=== PATIENT | female | born 1980 | race Caucasian/White ===

== ENCOUNTER 2017-12-06 20:30 | Emergency (ER) | payer OTHER ==
[2017-12-06 23:45] LABS: URINE BLOOD (Dip) POC Negative (NEGATIVE); URINE GLUCOSE (Dip) POC Negative (NEGATIVE); URINE KETONES (Dip) POC Trace (NEGATIVE); URINE LEUKOCYTE EST (Dip) POC Negative (NEGATIVE); URINE NITRITE (Dip) POC Negative (NEGATIVE); URINE TOTAL PROTEIN POC Negative (NEGATIVE)
[2017-12-07] MEDS: morphine 4 MG/ML VIAL IV
[2017-12-07] MEDS: ONDANSETRON 4 MG INJ IV
[2017-12-07] MEDS: SOD CHLORIDE 0.9% 1,000 ML IV
[2017-12-07 00:36] LABS: ADD MAN DIFF? NO
[2017-12-07 00:54] LABS: ALANINE AMINOTRANSFERASE 42 IU/L (13-69); ALBUMIN 4.2 g/dl (3.3-4.9); ALBUMIN/GLOBULIN RATIO 1.07; ALKALINE PHOSPHATASE 88 IU/L (42-121); ANION GAP 15 (8-16); ASPARTATE AMINO TRANSFERASE 33 IU/L (15-46); BILIRUBIN,INDIRECT 0.1 mg/dl (0-1.1); BILIRUBIN,TOTAL 0.1 mg/dl (0.2-1.3); BLOOD UREA NITROGEN 10 mg/dl (7-20); CALCIUM 9.2 mg/dl (8.4-10.2); CARBON DIOXIDE 24 mmol/L (21-31); CHLORIDE 105 mmol/L (97-110); CREATININE 0.52 mg/dl (0.44-1.00); GLUCOSE 122 mg/dl (70-220); LIPASE 158 U/L (23-300); POTASSIUM 3.8 mmol/L (3.5-5.1); SODIUM 140 mmol/L (135-144); TOTAL PROTEIN 8.1 g/dl (6.1-8.1)
[2017-12-07 00:55] LABS: WHITE BLOOD COUNT 7.2 10^3/ul (4.8-10.8)
[2017-12-07 00:55] LABS: BASOPHILS % 0.6 % (0.0-2.0); EOSINOPHILS # 0.1 10^3/ul (0.0-0.5); EOSINOPHILS % 0.8 % (0.0-7.0); HEMATOCRIT 36.8 % (37.0-47.0); HEMOGLOBIN 12.9 g/dl (12.0-16.0); LYMPHOCYTES # 2.7 10^3/ul (0.8-2.9); LYMPHOCYTES % 37.2 % (15.0-51.0); MEAN CORPUSCULAR HEMOGLOBIN 30.5 pg (29.0-33.0); MEAN CORPUSCULAR HGB CONC 35.1 g/dl (32.0-37.0); MEAN PLATELET VOLUME 10.7 fl (7.4-10.4); MONOCYTE # 0.5 10^3/ul (0.3-0.9); MONOCYTES % 7.3 % (0.0-11.0); NEUTROPHIL # 3.9 10^3/ul (1.6-7.5); NEUTROPHILS % 53.8 % (39.0-77.0); PLATELET COUNT 278 10^3/UL (140-415); RED BLOOD COUNT 4.23 10^6/ul (4.20-5.40); RED CELL DISTRIBUTION WIDTH 12.4 % (11.5-14.5)
[2017-12-07 01:02] LABS: ADD UMIC NO; UR ASCORBIC ACID NEGATIVE (NEGATIVE); UR BILIRUBIN (Dip) NEGATIVE (NEGATIVE); UR BLOOD (Dip) NEGATIVE (NEGATIVE); UR CLARITY CLEAR (CLEAR); UR COLOR YELLOW (YELLOW); UR GLUCOSE (Dip) NEGATIVE (NEGATIVE); UR KETONES (Dip) NEGATIVE (NEGATIVE); UR LEUKOCYTE ESTERASE (Dip) NEGATIVE Leu/ul (NEGATIVE); UR NITRITE (Dip) NEGATIVE (NEGATIVE); UR SPECIFIC GRAVITY (Dip) 1.016 (1.003-1.030); UR TOTAL PROTEIN (Dip) NEGATIVE (NEGATIVE); UR UROBILINOGEN (Dip) 1+ mg/dL (NEGATIVE)
== END 2017-12-07 03:01 | disposition home or self-care (01) ==
LOC: FTE 12-07 03:01
DX: R10.11 Right upper quadrant pain (principal)
CPT/HCPCS: 36415; 74176; 76705; 80053; 81003; 83690; 84703; 85025; 96374; 96375; 99285-25

== ENCOUNTER 2018-03-04 17:12 | Emergency (ER) | payer OTHER ==
[2018-03-04] MEDS: IBUPROFEN 600 MG TAB PO (20:06)
[2018-03-04] MEDS: DIAZEPAM 2 MG TAB PO (20:06)
== END 2018-03-04 21:13 | disposition home or self-care (01) ==
LOC: FTE 17:12
DX: M25.512 Pain in left shoulder (principal); M54.2 Cervicalgia
CPT/HCPCS: 72040; 73030; 99284-25

== ENCOUNTER 2018-06-23 02:12 | Emergency (ER) | payer OTHER ==
[2018-06-23 02:35] LABS: URINE BLOOD (Dip) POC 3+ (NEGATIVE); URINE GLUCOSE (Dip) POC Negative (NEGATIVE); URINE KETONES (Dip) POC 1+ (NEGATIVE); URINE LEUKOCYTE EST (Dip) POC Negative (NEGATIVE); URINE NITRITE (Dip) POC Negative (NEGATIVE); URINE TOTAL PROTEIN POC 2+ (NEGATIVE)
[2018-06-23] MEDS: SOD CHLORIDE 0.9% 1,000 ML IV (03:05)
[2018-06-23] MEDS: ACETAMINOPHEN 325 MG TAB PO (03:06)
[2018-06-23] MEDS: ONDANSETRON 4 MG INJ IV (03:06)
[2018-06-23] MEDS: morphine 4 MG/ML VIAL IV (03:06)
[2018-06-23 03:17] LABS: HEMOGLOBIN 12.5 g/dl (12.0-16.0); MEAN CORPUSCULAR HEMOGLOBIN 30.1 pg (29.0-33.0); MEAN CORPUSCULAR HGB CONC 34.7 g/dl (32.0-37.0); MEAN CORPUSCULAR VOLUME 86.7 fl (82.0-101.0); PLATELET COUNT 193 10^3/UL (140-415); RED BLOOD COUNT 4.15 10^6/ul (4.20-5.40); RED CELL DISTRIBUTION WIDTH 13.1 % (11.5-14.5)
[2018-06-23 03:17] LABS: WHITE BLOOD COUNT 3.3 10^3/ul (4.8-10.8)
[2018-06-23 03:32] LABS: ADD MAN DIFF? YES; POSITIVE DIFF @See below
[2018-06-23 03:36] LABS: ALANINE AMINOTRANSFERASE 47 IU/L (13-69); ALBUMIN/GLOBULIN RATIO 1.14; ALKALINE PHOSPHATASE 75 IU/L (42-121); ANION GAP 17 (8-16); ASPARTATE AMINO TRANSFERASE 55 IU/L (15-46); BLOOD UREA NITROGEN 12 mg/dl (7-20); CALCIUM 8.5 mg/dl (8.4-10.2); CARBON DIOXIDE 26 mmol/L (21-31); CHLORIDE 105 mmol/L (97-110); CREATININE 0.72 mg/dl (0.44-1.00); GLUCOSE 119 mg/dl (70-220); LIPASE 122 U/L (23-300); POTASSIUM 3.7 mmol/L (3.5-5.1); SODIUM 144 mmol/L (135-144); TOTAL PROTEIN 7.5 g/dl (6.1-8.1)
[2018-06-23 03:49] LABS: ADD UMIC YES; UR ASCORBIC ACID 40 mg/dL (NEGATIVE); UR BACTERIA FEW /HPF (NONE SEEN); UR BILIRUBIN (Dip) NEGATIVE (NEGATIVE); UR BLOOD (Dip) 3+ mg/dL (NEGATIVE); UR CLARITY SLIGHTLY CLOUDY (CLEAR); UR COLOR YELLOW (YELLOW); UR GLUCOSE (Dip) NEGATIVE (NEGATIVE); UR KETONES (Dip) 1+ mg/dL (NEGATIVE); UR LEUKOCYTE ESTERASE (Dip) NEGATIVE Leu/ul (NEGATIVE); UR MUCUS MODERATE /HPF (NONE SEEN); UR NITRITE (Dip) NEGATIVE (NEGATIVE); UR RBC 4 /HPF (0-5); UR SPECIFIC GRAVITY (Dip) 1.028 (1.003-1.030); UR SQUAMOUS EPITHELIAL CELL FEW /HPF (FEW); UR TOTAL PROTEIN (Dip) 1+ mg/dl (NEGATIVE); UR UROBILINOGEN (Dip) 1+ mg/dL (NEGATIVE); UR WBC 10 /HPF (0-5)
[2018-06-23 05:00] LABS: ANISOCYTOSIS 1+ (0-0); BAND NEUTROPHILS #M 0.5 10^3/ul (0.0-0.6); BAND NEUTROPHILS % (M) 17 % (0-4); LYMPHOCYTES #M 0.7 10^3/ul (0.8-2.9); LYMPHOCYTES % (M) 24 % (15-51); MONOCYTE #M 0.2 10^3/ul (0.3-0.9); MONOCYTES % (M) 9 % (0-11); PLATELET ESTIMATE NORMAL; SEG NEUT #M 1.7 10^3/ul (1.6-7.5); SEGMENTED NEUTROPHILS (M) % 50 % (39-77); SMUDGE%M 15 % (0-0)
[2018-06-23] MEDS: KETOROLAC 30 MG INJ IV (05:20)
== END 2018-06-23 05:36 | disposition home or self-care (01) ==
LOC: FTE 02:12
DX: M54.5 Low back pain (principal); R50.9 Fever, unspecified; F17.210 Nicotine dependence, cigarettes, uncomplicated; R11.2 Nausea with vomiting, unspecified; R10.9 Unspecified abdominal pain
CPT/HCPCS: 36415; 74176; 80053; 81001; 81003; 81025; 83690; 85025; 93005; 96361; 96374; 96375; 99285-25

== ENCOUNTER 2018-12-17 19:34 | Emergency (ER) | payer OTHER ==
[2018-12-17] MEDS: HYDROCODONE/APAP (5/325) TAB PO (23:27)
[2018-12-17] MEDS: KETOROLAC 30 MG INJ IM (23:27)
== END 2018-12-18 00:03 | disposition home or self-care (01) ==
LOC: FTE 12-18 00:03
DX: M54.5 Low back pain (principal)
CPT/HCPCS: 81025; 96372; 99284-25

== ENCOUNTER 2019-01-23 08:16 | Emergency (ER) | payer OTHER ==
[2019-01-23] MEDS: IBUPROFEN 600 MG TAB PO (08:44)
== END 2019-01-23 09:00 | disposition home or self-care (01) ==
LOC: FTE 09:00
DX: M54.5 Low back pain (principal)
CPT/HCPCS: 99283; Z7502

== ENCOUNTER 2019-03-03 09:56 | Emergency (ER) | payer OTHER ==
[2019-03-03 12:06] LABS: ADD MAN DIFF? NO
[2019-03-03 12:09] LABS: BASOPHILS % 0.6 % (0.0-2.0); EOSINOPHILS % 0.7 % (0.0-7.0); HEMATOCRIT 39.9 % (37.0-47.0); HEMOGLOBIN 13.8 g/dl (12.0-16.0); MEAN CORPUSCULAR HEMOGLOBIN 30.5 pg (29.0-33.0); MEAN CORPUSCULAR HGB CONC 34.6 g/dl (32.0-37.0); MEAN CORPUSCULAR VOLUME 88.1 fl (82.0-101.0); MEAN PLATELET VOLUME 9.6 fl (7.4-10.4); MONOCYTE # 0.5 10^3/ul (0.3-0.9); MONOCYTES % 9.4 % (0.0-11.0); NEUTROPHIL # 2.8 10^3/ul (1.6-7.5); NEUTROPHILS % 52.1 % (39.0-77.0); PLATELET COUNT 276 10^3/UL (140-415); RED BLOOD COUNT 4.53 10^6/ul (4.20-5.40); RED CELL DISTRIBUTION WIDTH 12.8 % (11.5-14.5)
[2019-03-03 12:09] LABS: WHITE BLOOD COUNT 5.4 10^3/ul (4.8-10.8)
[2019-03-03 12:18] LABS: ADD UMIC YES; UR ASCORBIC ACID NEGATIVE (NEGATIVE); UR BILIRUBIN (Dip) NEGATIVE (NEGATIVE); UR BLOOD (Dip) 1+ mg/dL (NEGATIVE); UR CLARITY CLEAR (CLEAR); UR COLOR STRAW (YELLOW); UR GLUCOSE (Dip) NEGATIVE (NEGATIVE); UR KETONES (Dip) NEGATIVE (NEGATIVE); UR LEUKOCYTE ESTERASE (Dip) NEGATIVE Leu/ul (NEGATIVE); UR MUCUS FEW /HPF (NONE SEEN); UR NITRITE (Dip) NEGATIVE (NEGATIVE); UR RBC 0 /HPF (0-5); UR SPECIFIC GRAVITY (Dip) 1.011 (1.003-1.030); UR SQUAMOUS EPITHELIAL CELL FEW /HPF (FEW); UR TOTAL PROTEIN (Dip) NEGATIVE (NEGATIVE); UR UROBILINOGEN (Dip) NEGATIVE (NEGATIVE); UR WBC 1 /HPF (0-5)
[2019-03-03 12:32] LABS: ALANINE AMINOTRANSFERASE 33 IU/L (13-69); ALBUMIN 4.4 g/dl (3.3-4.9); ALBUMIN/GLOBULIN RATIO 1.18; ALKALINE PHOSPHATASE 97 IU/L (42-121); ANION GAP 10 (5-13); ASPARTATE AMINO TRANSFERASE 29 IU/L (15-46); BILIRUBIN,INDIRECT 0.3 mg/dl (0-1.1); BILIRUBIN,TOTAL 0.3 mg/dl (0.2-1.3); BLOOD UREA NITROGEN 8 mg/dl (7-20); CALCIUM 9.1 mg/dl (8.4-10.2); CARBON DIOXIDE 26 mmol/L (21-31); CHLORIDE 108 mmol/L (97-110); CREATININE 0.55 mg/dl (0.44-1.00); Estimated GFR > 60 mL/min (>60); GLUCOSE 83 mg/dl (70-220); LIPASE 131 U/L (23-300); POTASSIUM 3.8 mmol/L (3.5-5.1); SODIUM 144 mmol/L (135-144); TOTAL PROTEIN 8.1 g/dl (6.1-8.1)
== END 2019-03-03 13:17 | disposition home or self-care (01) ==
LOC: FTE 09:56
DX: R10.30 Lower abdominal pain, unspecified (principal); R10.2 Pelvic and perineal pain
CPT/HCPCS: 36415; 74176; 76856; 80053; 81001; 81025; 83690; 85025; 99284-25